=== PATIENT | male | born 1960 | race Caucasian/White ===

== ENCOUNTER 2020-09-20 05:45 | Emergency (ER) | payer BC, OTHER ==
[~2020-09-20] VITALS: Ht 200.7 cm; Wt 120.0 kg
[~2020-09-20 05:45] MED LIST: FLEC50TA PO; MULT-1085 PO; OMEG300C2 PO; ROSU20TA2 PO; WARF-113 PO; [UNRECOGNIZED DRUG - OTHER] PO
[2020-09-20 05:51] VITALS: BP 134/81
== END 2020-09-20 10:05 | disposition left against medical advice (07) ==
LOC: ER 05:46
DX: R50.9 Fever, unspecified (principal); Z53.21 Procedure and treatment not carried out due to patient leaving prior to being seen by health care provider

== ENCOUNTER 2020-10-06 15:18 | Outpatient (CLI) | payer BC | END 2020-10-06 23:59 | disposition home or self-care (01) | LOC: CARD DIAG 15:18 | PROVIDERS: ATTEND Nurse Practitioner Family | DX: I08.8 Other rheumatic multiple valve diseases (principal); I48.0 Paroxysmal atrial fibrillation | CPT/HCPCS: 93306 ==

== ENCOUNTER 2020-10-11 10:37 | Outpatient (CLI) | payer BC ==
[2020-10-11 11:34] LABS: BASOPHILS % (AUTO) 0.7 % (0-1); EOSINOPHILS # (AUTO) 0.1 X10'3 (0-0.9); EOSINOPHILS % (AUTO) 1.3 % (0-6); HEMATOCRIT 42.1 % (42.0-52.0); HEMOGLOBIN 14.2 g/dl (14.0-17.9); LYMPHOCYTES # (AUTO) 1.2 X10'3 (1.1-4.8); MEAN CORPUSCULAR HEMOGLOBIN 31.1 PG (27.0-31.0); MEAN CORPUSCULAR HGB CONC 33.8 g/dL (33.0-36.5); MEAN CORPUSCULAR VOLUME 92.1 FL (78-98); MEAN PLATELET VOLUME 7.2 FL (7.4-10.4); MONOCYTES # (AUTO) 0.5 X10'3 (0-0.9); MONOCYTES % (AUTO) 10.7 % (2-12); NEUTROPHILS # (AUTO) 2.9 X10'3 (1.8-7.7); NEUTROPHILS % (AUTO) 62.3 % (42-75); PLATELET COUNT 166 X10'3 (140-440); RED BLOOD COUNT 4.57 X10'6 (4.70-6.10); RED CELL DISTRIBUTION WIDTH 13.4 % (11.5-14.5); WHITE BLOOD COUNT 4.6 X10'3 (4.5-11.0)
== END 2020-10-11 23:59 | disposition home or self-care (01) ==
LOC: LAB 10:37
PROVIDERS: ATTEND Family Medicine
DX: D72.819 Decreased white blood cell count, unspecified (principal)
CPT/HCPCS: 36415; 85025

== ENCOUNTER 2021-01-03 09:05 | Outpatient (CLI) | payer BC ==
[2021-01-03 09:41] LABS: BASOPHILS % (AUTO) 0.9 % (0-1); EOSINOPHILS # (AUTO) 0.1 X10'3 (0-0.9); HEMATOCRIT 41.6 % (42.0-52.0); HEMOGLOBIN 14.3 g/dl (14.0-17.9); LYMPHOCYTES # (AUTO) 1.2 X10'3 (1.1-4.8); LYMPHOCYTES % (AUTO) 23.5 % (21-51); MEAN CORPUSCULAR HEMOGLOBIN 31.2 PG (27.0-31.0); MEAN CORPUSCULAR HGB CONC 34.4 g/dL (33.0-36.5); MEAN CORPUSCULAR VOLUME 90.9 FL (78-98); MEAN PLATELET VOLUME 6.9 FL (7.4-10.4); MONOCYTES # (AUTO) 0.5 X10'3 (0-0.9); MONOCYTES % (AUTO) 9.2 % (2-12); NEUTROPHILS # (AUTO) 3.1 X10'3 (1.8-7.7); NEUTROPHILS % (AUTO) 63.4 % (42-75); PLATELET COUNT 176 X10'3 (140-440); RED BLOOD COUNT 4.58 X10'6 (4.70-6.10); RED CELL DISTRIBUTION WIDTH 13.1 % (11.5-14.5); WHITE BLOOD COUNT 4.9 X10'3 (4.5-11.0)
[2021-01-03 09:49] LABS: HEMOGLOBIN A1C 6.1 % (4.5-6.2)
[2021-01-03 10:05] LABS: ALANINE AMINOTRANSFERASE 36 U/L (12-78); ALBUMIN 3.6 G/DL (3.4-5.0); ALBUMIN/GLOBULIN RATIO 1.2 (1.1-1.5); ALKALINE PHOSPHATASE 109 IU/L (46-116); ANION GAP 8 (8-16); ASPARTATE AMINO TRANSFERASE 27 U/L (10-37); BILIRUBIN,TOTAL 0.6 MG/DL (0.1-1.0); BLOOD UREA NITROGEN 16 MG/DL (7-18); BUN/CREATININE RATIO 15.7 (5.4-32.0); CALCIUM 8.2 MG/DL (8.5-10.1); CHLORIDE 107 MMOL/L (99-107); CREATININE 1.02 MG/DL (0.60-1.10); GLUCOSE 126 MG/DL (70-104); HDL CHOLESTEROL 31 MG/DL (35-60); LDL CHOLESTEROL 82 MG/DL (50-100); POTASSIUM 4.1 MMOL/L (3.5-5.1); SODIUM 143 MMOL/L (135-145); TOTAL CARBON DIOXIDE 27.9 MMOL/L (24-32); TOTAL PROTEIN 6.6 G/DL (6.4-8.2); TRIGLYCERIDES 226 MG/DL (20-135); eGFR 74 ML/MIN
[2021-01-03 11:16] LABS: CHOL/HDL RATIO 5.4 (0.00-4.99); CHOLESTEROL 168 MG/DL (0-200)
[2021-01-04 11:18] LABS: % FREE PSA 14.2 % (.); PSA, FREE 0.68 ng/mL
== END 2021-01-03 23:59 | disposition home or self-care (01) ==
LOC: LAB 09:05
PROVIDERS: ATTEND Family Medicine
DX: Z00.00 Encounter for general adult medical examination without abnormal findings (principal); R68.89 Other general symptoms and signs; R79.89 Other specified abnormal findings of blood chemistry; E78.00 Pure hypercholesterolemia, unspecified; I10 Essential (primary) hypertension; R94.6 Abnormal results of thyroid function studies; R73.01 Impaired fasting glucose; R97.20 Elevated prostate specific antigen [PSA]; K90.49 Malabsorption due to intolerance, not elsewhere classified
CPT/HCPCS: 80053; 80061; 82306; 83036; 83735; 84153; 84154; 84439; 84443; 85025

== ENCOUNTER 2021-03-29 06:18 | Emergency (ER) | payer BC ==
[~2021-03-29] VITALS: Ht 200.7 cm; Wt 275.0 kg
[2021-03-29 06:45] VITALS: BP 150/96
--- NOTE | 2021-03-29 08:23 | NUR ---
THIS MAGNET PLACER CALLED PATIENT AT 0820 AT NOTIFIED OF NEGATIVE COVID TEST RESULT. INSTRUCTED TO RETURN TO ER IF SYMPTOMS WORSEN.
== END 2021-03-29 08:00 | disposition home or self-care (01) ==
LOC: ER 06:18
DX: Z20.822 Contact with and (suspected) exposure to COVID-19 (principal); R09.81 Nasal congestion; J34.89 Other specified disorders of nose and nasal sinuses; R05.9 Cough, unspecified; I48.91 Unspecified atrial fibrillation; I11.0 Hypertensive heart disease with heart failure; I50.9 Heart failure, unspecified; E78.00 Pure hypercholesterolemia, unspecified; E11.9 Type 2 diabetes mellitus without complications; G89.29 Other chronic pain; Z86.73 Personal history of transient ischemic attack (TIA), and cerebral infarction without residual deficits; Z79.899 Other long term (current) drug therapy
CPT/HCPCS: 87635; 99283; C9803

== ENCOUNTER 2021-10-03 08:43 | Outpatient (CLI) | payer BC | END 2021-10-03 23:59 | disposition home or self-care (01) | LOC: RAD 08:43 | PROVIDERS: ATTEND Nurse Practitioner Family | DX: M48.061 Spinal stenosis, lumbar region without neurogenic claudication (principal); M51.16 Intervertebral disc disorders with radiculopathy, lumbar region; M43.16 Spondylolisthesis, lumbar region; M47.26 Other spondylosis with radiculopathy, lumbar region; M12.88 Other specific arthropathies, not elsewhere classified, other specified site; M53.3 Sacrococcygeal disorders, not elsewhere classified; M89.38 Hypertrophy of bone, other site | CPT/HCPCS: 72110; 72148 ==

== ENCOUNTER 2021-11-27 12:33 | Outpatient (CLI) | payer BC ==
[2021-11-27 12:59] LABS: BASOPHILS # (AUTO) 0.1 X10'3 (0-0.2); BASOPHILS % (AUTO) 1.1 % (0-1); EOSINOPHILS # (AUTO) 0.1 X10'3 (0-0.9); EOSINOPHILS % (AUTO) 1.7 % (0-6); HEMATOCRIT 41.7 % (42.0-52.0); HEMOGLOBIN 14.4 g/dl (14.0-17.9); LYMPHOCYTES # (AUTO) 1.3 X10'3 (1.1-4.8); LYMPHOCYTES % (AUTO) 23.5 % (21-51); MEAN CORPUSCULAR HEMOGLOBIN 31.6 PG (27.0-31.0); MEAN CORPUSCULAR HGB CONC 34.5 g/dL (33.0-36.5); MEAN CORPUSCULAR VOLUME 91.5 FL (78-98); MEAN PLATELET VOLUME 7.3 FL (7.4-10.4); MONOCYTES # (AUTO) 0.5 X10'3 (0-0.9); MONOCYTES % (AUTO) 9.3 % (2-12); NEUTROPHILS # (AUTO) 3.6 X10'3 (1.8-7.7); NEUTROPHILS % (AUTO) 64.4 % (42-75); PLATELET COUNT 156 X10'3 (140-440); RED BLOOD COUNT 4.56 X10'6 (4.70-6.10); RED CELL DISTRIBUTION WIDTH 13.4 % (11.5-14.5); WHITE BLOOD COUNT 5.6 X10'3 (4.5-11.0)
[2021-11-27 13:22] LABS: ALANINE AMINOTRANSFERASE 30 U/L (12-78); ALBUMIN 3.8 G/DL (3.4-5.0); ALBUMIN/GLOBULIN RATIO 1.2 (1.1-1.5); ALKALINE PHOSPHATASE 97 IU/L (46-116); ANION GAP 8 (8-16); ASPARTATE AMINO TRANSFERASE 24 U/L (10-37); BILIRUBIN,TOTAL 0.6 MG/DL (0.1-1.0); BLOOD UREA NITROGEN 18 MG/DL (7-18); BUN/CREATININE RATIO 16.8 (5.4-32.0); CALCIUM 8.6 MG/DL (8.5-10.1); CHLORIDE 107 MMOL/L (99-107); CHOL/HDL RATIO 5.3 (0.00-4.99); CHOLESTEROL 201 MG/DL (0-200); CREATININE 1.07 MG/DL (0.60-1.10); GLUCOSE 124 MG/DL (70-104); HDL CHOLESTEROL 38 MG/DL (35-60); LDL CHOLESTEROL 98 MG/DL (50-100); POTASSIUM 4.2 MMOL/L (3.5-5.1); SODIUM 140 MMOL/L (135-145); TOTAL CARBON DIOXIDE 24.6 MMOL/L (24-32); TRIGLYCERIDES 206 MG/DL (20-135); eGFR 70 ML/MIN
[2021-11-27 13:52] LABS: HEMOGLOBIN A1C 6.2 % (4.5-6.2)
== END 2021-11-27 23:59 | disposition home or self-care (01) ==
LOC: LAB 12:33
PROVIDERS: ATTEND Family Medicine
DX: E11.65 Type 2 diabetes mellitus with hyperglycemia (principal); I13.10 Hypertensive heart and chronic kidney disease without heart failure, with stage 1 through stage 4 chronic kidney disease, or unspecified chronic kidney disease; I49.9 Cardiac arrhythmia, unspecified; R53.83 Other fatigue; Z86.73 Personal history of transient ischemic attack (TIA), and cerebral infarction without residual deficits
CPT/HCPCS: 80053; 80061; 83036; 84443; 85025

== ENCOUNTER 2024-04-26 07:53 | Day surgery (SDC) | payer BC ==
[~2024-04-26] VITALS: Ht 198.1 cm; Wt 122.7 kg
[~2024-04-26 07:53] MED LIST changes: +AMLO10TA13; +APIX5TAB3 PO; +ATOR10TA70; -FLEC50TA PO; +METO-384; -OMEG300C2 PO; +RAMI10CA78; -ROSU20TA2 PO; -WARF-113 PO; -[UNRECOGNIZED DRUG - OTHER] PO; +vitamin d
[2024-04-26 08:14] VITALS: BP 166/88; PULSE 55; RESP 17; TEMP 97.7
[2024-04-26] MEDS ORDERED: simethicone 40mg/0.6ml oral drops 30ml ONE (08:22)
[2024-04-26] MEDS ORDERED: propofol inj 20 ML IV ONE (08:45)
[2024-04-26] MEDS ORDERED: LIDOcaine 2% (20mg/ml) 5ml vial ONE (08:45)
[2024-04-26 09:10] VITALS: BP 134/83; PULSE 62; RESP 18; O2SAT 99
[2024-04-26 09:20] VITALS: BP 123/84; PULSE 55; RESP 15; O2SAT 99
[2024-04-26 09:30] VITALS: BP 142/87; PULSE 56; RESP 14; O2SAT 97
[2024-04-26 09:40] VITALS: BP 136/93; PULSE 56; RESP 17; O2SAT 98
== END 2024-04-26 09:45 | disposition home or self-care (01) ==
LOC: PRE-OP 07:53
PROVIDERS: ATTEND Internal Medicine Gastroenterology
DX: Z09 Encounter for follow-up examination after completed treatment for conditions other than malignant neoplasm (principal); K57.30 Diverticulosis of large intestine without perforation or abscess without bleeding; I11.0 Hypertensive heart disease with heart failure; I50.9 Heart failure, unspecified; G47.30 Sleep apnea, unspecified; Z86.73 Personal history of transient ischemic attack (TIA), and cerebral infarction without residual deficits; I48.91 Unspecified atrial fibrillation; E78.5 Hyperlipidemia, unspecified; Z86.0109 Personal history of other colon polyps
CPT/HCPCS: 45378; J2003; J2704; J7030; Z7512; A4620

== ENCOUNTER 2024-06-10 08:03 | Day surgery (SDC) | payer BC ==
[~2024-06-10] VITALS: Ht 200.7 cm; Wt 125.0 kg
[~2024-06-10 08:03] MED LIST changes: +LIDOcaine 2% (20mg/ml) 5ml vial ONE; +propofol inj 20 ML IV ONE
[2024-06-10 08:22] VITALS: BP 148/88; PULSE 52; RESP 15; TEMP 97.5
[2024-06-10] MEDS ORDERED: simethicone 40mg/0.6ml oral drops 30ml ONE (09:26)
[2024-06-10] MEDS ORDERED: fentaNYL/PF 50MCG/1 ML 2ML syringe ONE (09:29)
[2024-06-10 09:46] VITALS: BP 120/75; PULSE 52; RESP 14; O2SAT 95
[2024-06-10 09:56] VITALS: BP 134/78; PULSE 51; RESP 12; O2SAT 96
[2024-06-10 10:06] VITALS: BP 139/83; PULSE 50; RESP 13; O2SAT 96
[2024-06-10 10:16] VITALS: BP 142/82; PULSE 50; RESP 12; O2SAT 95
== END 2024-06-10 10:30 | disposition home or self-care (01) ==
LOC: GI LAB 08:03
PROVIDERS: ATTEND Internal Medicine Gastroenterology
DX: R13.10 Dysphagia, unspecified (principal); K21.00 Gastro-esophageal reflux disease with esophagitis, without bleeding; K31.89 Other diseases of stomach and duodenum; E11.9 Type 2 diabetes mellitus without complications; I48.91 Unspecified atrial fibrillation; I50.9 Heart failure, unspecified; Z86.73 Personal history of transient ischemic attack (TIA), and cerebral infarction without residual deficits; G47.30 Sleep apnea, unspecified
CPT/HCPCS: 43239; J2003; J2704; J3010; J7030; Z7512; A4620

== ENCOUNTER 2024-07-07 09:43 | Outpatient (CLI) | payer BC ==
[~2024-07-07 09:43] MED LIST changes: -LIDOcaine 2% (20mg/ml) 5ml vial ONE; -propofol inj 20 ML IV ONE
[2024-07-07 10:45] LABS: BASOPHILS % (AUTO) 0.5 % (0-1); EOSINOPHILS # (AUTO) 0.2 X10'3 (0-0.9); EOSINOPHILS % (AUTO) 3.3 % (0-6); LYMPHOCYTES # (AUTO) 1.2 X10'3 (1.1-4.8); LYMPHOCYTES % (AUTO) 23.9 % (21-51); MEAN CORPUSCULAR HEMOGLOBIN 31.2 PG (27.0-31.0); MEAN CORPUSCULAR HGB CONC 34.2 g/dL (33.0-36.5); MEAN CORPUSCULAR VOLUME 91.4 FL (78-98); MEAN PLATELET VOLUME 7.3 FL (7.4-10.4); MONOCYTES # (AUTO) 0.5 X10'3 (0-0.9); MONOCYTES % (AUTO) 10.4 % (2-12); NEUTROPHILS # (AUTO) 3.1 X10'3 (1.8-7.7); NEUTROPHILS % (AUTO) 61.9 % (42-75); PLATELET COUNT 160 X10'3 (140-440); RED BLOOD COUNT 4.48 X10'6 (4.70-6.10); RED CELL DISTRIBUTION WIDTH 13.7 % (11.5-14.5)
[2024-07-07 11:36] LABS: HEMOGLOBIN A1C 9.3 % (4.5-6.2)
[2024-07-07 12:15] LABS: ALANINE AMINOTRANSFERASE 46 U/L (12-78); ALBUMIN 3.8 G/DL (3.4-5.0); ALBUMIN/GLOBULIN RATIO 1.6 (1.1-1.5); ALKALINE PHOSPHATASE 113 IU/L (46-116); ANION GAP 5 (8-16); ASPARTATE AMINO TRANSFERASE 26 U/L (10-37); BILIRUBIN,TOTAL 0.8 MG/DL (0.1-1.0); BLOOD UREA NITROGEN 14 MG/DL (7-18); BUN/CREATININE RATIO 14.6 (10.0-20.0); CALCIUM 8.5 MG/DL (8.5-10.1); CHLORIDE 104 MMOL/L (99-107); CHOL/HDL RATIO 4.9 (0.00-4.99); CHOLESTEROL 178 MG/DL (0-200); CREATININE 0.96 MG/DL (0.60-1.10); GLUCOSE 183 MG/DL (70-104); HDL CHOLESTEROL 36 MG/DL (35-60); LDL CHOLESTEROL 83 MG/DL (50-100); POTASSIUM 4.3 MMOL/L (3.5-5.1); SODIUM 139 MMOL/L (135-145); THYROID STIMULATING HORMONE 1.33 ulU/ml (0.34-4.50); TOTAL CARBON DIOXIDE 29.7 MMOL/L (24-32); TOTAL PROTEIN 6.2 G/DL (6.4-8.2); TRIGLYCERIDES 224 MG/DL (20-135); eGFR 79 ML/MIN
[2024-07-08 08:33] LABS: VITAMIN D, 25-HYDROXY 39.2 ng/mL (30.0-100.0)
[2024-07-08 11:12] LABS: PSA, ULTRASENSITIVE W/O SERIAL 4.93 ng/mL (0.000-4.000)
[2024-07-08 14:01] LABS: CREATININE, URINE 95.9 mg/dL (Not Estab.); MICROALBUMIN,U,RANDOM 38.3 ug/mL (Not Estab.)
== END 2024-07-07 23:59 | disposition home or self-care (01) ==
LOC: LAB 09:43
PROVIDERS: ATTEND Family Medicine
DX: Z00.01 Encounter for general adult medical examination with abnormal findings (principal); E78.00 Pure hypercholesterolemia, unspecified; E67.3 Hypervitaminosis D; R94.6 Abnormal results of thyroid function studies; R73.01 Impaired fasting glucose; R97.20 Elevated prostate specific antigen [PSA]; R80.9 Proteinuria, unspecified
CPT/HCPCS: 36415; 80053; 80061; 82043; 82306; 82570; 83036; 84153; 84443; 85025

== ENCOUNTER 2025-03-08 13:12 | Outpatient (CLI) | payer BC ==
[2025-03-08 13:46] LABS: CHOL/HDL RATIO 4.6 (0.00-4.99); LDL CHOLESTEROL 97 MG/DL (50-100)
== END 2025-03-08 23:59 | disposition home or self-care (01) ==
LOC: LAB 13:12
PROVIDERS: ATTEND Family Medicine
DX: E11.65 Type 2 diabetes mellitus with hyperglycemia (principal); E78.00 Pure hypercholesterolemia, unspecified
CPT/HCPCS: 36415; 80061; 83036